=== PATIENT | male | born 1980 | race African-American/Black ===

== ENCOUNTER 2016-10-06 09:26 | Emergency (ER) | payer BC ==
[~2016-10-06] VITALS: Ht 175.3 cm; Wt 87.5 kg
[2016-10-06 09:56] LABS: HEMATOCRIT 44.2 % (38.0-50.0); MCH 27.2 PG (29.0-34.0); MCHC 32.6 G/DL (30.0-36.0); MCV 83.4 FL (86-99); PLATELET COUNT 286 K/uL (156-360); RBC DIS.WIDTH-SD 39.9 % (39-53); WHITE BLOOD COUNT 2.6 K/uL (4.1-10.2)
[2016-10-06 10:04] LABS: CHLORIDE 106 mEq/L (99-109); POTASSIUM 4.5 mEq/L (3.7-5.4); SODIUM 139 mEq/L (136-147)
[2016-10-06 10:06] LABS: GLUCOSE 67 mg/dL (70-99)
[2016-10-06 10:08] LABS: ANION GAP 8 MEQ/L (2-14); TOTAL BILIRUBIN 0.3 mg/dL (0.0-1.0)
[2016-10-06 10:10] LABS: ALKALINE PHOSPHATASE 73 IU/L (3-129)
[2016-10-06 10:11] LABS: GFR ESTIMATE (CALCULATED) > 59 mL/min/; UREA NITROGEN (BUN) 9 mg/dL (9-23)
[2016-10-06 11:22] LABS: ADD MIUA? NO; BILIRUBIN NEGATIVE; BLOOD NEGATIVE; COLOR STRAW ((YELLOW)); GLUCOSE (STRIP) NEGATIVE; KETONES NEGATIVE; LEUKOCYTES NEGATIVE; NITRITE NEGATIVE; PROTEIN (STRIP) NEGATIVE; SPECIFIC GRAVITY 1.003 (1.000-1.030); UCUL ADDED? NO; UROBILINOGEN 0.2 MG/DL (0.2-1.0)
[2016-10-06] MEDS ORDERED: IMODIUM MS REL1 EACH PO (11:48)
[2016-10-06] MEDS ORDERED: BENTYL20 MG PO (11:48)
[2016-10-06] MEDS ORDERED: ZOFRAN ODT4 MG PO (11:48)
[2016-10-06 11:58] VITALS: BP 121/76
== END 2016-10-06 12:06 | disposition home or self-care (01) ==
LOC: EME 09:26
DX: R11.2 Nausea with vomiting, unspecified (principal); R19.7 Diarrhea, unspecified; D72.819 Decreased white blood cell count, unspecified
CPT/HCPCS: 80053; 81003; 85027; 87493; 99281; 99285; J1885; J7030